=== PATIENT | male | born 1960 | race Caucasian/White ===

== ENCOUNTER 2019-01-07 05:37 | Emergency (ER) | payer OTHER ==
[2019-01-07] MEDS ORDERED: METHYLPREDNISOLONE 80MG/VIAL IM ONE (05:44)
--- NOTE | 2019-01-07 05:45 | Emergency Department Record ---
History of Present Illness - General Stated complaint: POISON CASI Time Seen by Provider: 01/07/19 05:38 Source: Patient, Old records reviewed Limitations: No limitations - History of Present Illness Initial comments: 58 yo male presents with an itchy rash. It started in the last day. His work exposes him to outdoor vegetation and he thinks he was exposed to poison casi. No fever, cough, shortness of breath. He has the rash on both arms. He is not a diabetic MD complaint: Rash -: Days(s) Location: [place], [place] Severity: Moderate Quality: Other Consistency: Constant Improves with: None Worsens with: Palpation Context: Other Associated symptoms: Denies other symptoms Treatments Prior to Arrival: Other - Related Data Previous Rx's Medication Instructions Recorded Prednisone [Prednisone 20Mg] 20 mg PO BID #14 tab 01/07/19 Review of Systems Constitutional: Denies: Chills, Fever, Malaise, Weakness Eyes: Denies: Eye discharge ENT: Denies: Congestion, Throat pain Respiratory: Denies: Cough, Dyspnea Cardiovascular: Denies: Chest pain, Palpitations, Syncope Endocrine: Denies: Fatigue, Polydipsia, Polyuria Gastrointestinal: Denies: Abdominal pain, Diarrhea, Nausea, Vomiting Genitourinary: Denies: Dysuria, Frequency, Hematuria Musculoskeletal: Denies: Arthralgia, Myalgia, Neck pain Skin: Reports: Change in color, Rash Neurological: Denies: Headache Psychiatric: Denies: Anxiety Hematological/Lymphatic: Denies: Easy bleeding, Easy bruising Physical Exam - General General Appearance: Alert, Oriented x3, Cooperative, No acute distress Limitations: No limitations - Head Head exam: Atraumatic, Normal inspection - Eye Eye exam: Normal appearance. negative: Conjunctival injection - ENT ENT exam: Normal exam Ear exam: Normal external inspection Nasal Exam: Normal inspection Mouth exam: Normal external inspection - Neck Neck exam: Normal inspection - Respiratory Respiratory exam: Normal lung sounds bilaterally. negative: Respiratory distress - Rectal Rectal exam: Deferred - exam: Deferred - Extremities Extremities exam: negative: Normal inspection Image of Full Body: 1 - raised, erythematous rash, no weeping 2 - raised, erythematous rash, no weeping - Back Back exam: Reports: Normal inspection - Neurological Neurological exam: Alert, Oriented X3 - Psychiatric Psychiatric exam: Normal affect, Normal mood - Skin Skin exam: Dry, Erythema, Intact, Warm. negative: Normal color Distribution of rash: RUE, LUE Course - Reevaluation(s) Reevaluation #1: 01/07/19 05:49 Rash is consistent with contact dermatitis Disposition Disposition: Discharge Clinical Impression: Contact dermatitis Disposition: Home, Self-Care Condition: (1) Good Instructions: Poison Casi (ED) Additional Instructions: Call your doctor for the next available follow up appointment Review this ER visit and the tests performed with your family doctor Return to the ER for a recheck if worse, any new concerns or questions Take the prescriptions provided as directed Prescriptions: Prednisone [Prednisone 20Mg] 20 mg PO BID #14 tab Time of Disposition: 05:46 Quality - Quality Measures Quality Measures: N/A - Blood Pressure Screening Does Patient Have Any of the Following: Active Dx of HTN Systolic Measurement: ~ Screening for High Blood Pressure: Patient Exclusion, Hx of HTN [[id number]]
== END 2019-01-07 06:10 | disposition home or self-care (01) ==
LOC: ER 05:37
DX: L23.7 Allergic contact dermatitis due to plants, except food (principal); I10 Essential (primary) hypertension
CPT/HCPCS: 96372; 99282; 99283; J1040